=== PATIENT | female | born 2005 | race Hispanic/Latino ===

== ENCOUNTER 2025-08-15 18:14 | Emergency (ER) | payer SELFPAY ==
[2025-08-15 18:18] VITALS: BP 143/85
[2025-08-15 18:40] LABS: Hematocrit 39.2 % (37.0-47.0); Hemoglobin 13.2 g/dL (12.0-16.0); Mean Corp Hgb Conc. 33.7 g/dL (33.0-37.0); Mean Corpuscular Volume 80.0 fL (81.0-99.0); Nucleated Red Blood Cells % 0 %; Platelet Count 288 10^3/uL (130-400); Red Cell Dist. Width 15.1 % (11.5-14.5)
[2025-08-15 19:05] LABS: ALT (SGPT) 14 U/L (0-35); AST (SGOT) 24 U/L (14-36); Albumin 5.4 g/dl (3.5-5.0); Alkaline Phosphatase 66 U/L (38-126); Blood Urea Nitrogen 11 mg/dl (7-17); Calcium 9.8 mg/dl (8.4-10.2); Carbon Dioxide 24 mmol/L (22-30); Chloride 101 mmol/L (98-107); Glucose 98 mg/dl (70-99); Potassium 4.4 mmol/L (3.5-5.1); Sodium 137 mmol/L (135-145); Total Protein 8.4 g/dl (6.3-8.2); eGFR > 60.00
--- NOTE | 2025-08-15 20:06 | ED.GENMED ---
History of Present Illness
General
Chief Complaint: Headache
Source: patient, family (Father at bedside) and [employer]
Exam Limitations: none
Time Seen by Provider: 08/15/25 19:44
Nursing documentation reviewed up to this point in time: agreed with
History of Present Illness
History of Present Illness:
20-year-old female arriving from [place] 1 month ago, [id number], no past medical history presents for 'a little' blurry vision in her right eye and a headache right side of head she's had intermittently for past month, right neck and
shoulder pain for past week, worse with forward and backward neck flexion. She describes the vision as initially blurry but reports that it is not blurry at the time of the visit. The symptoms do not include any recent trauma or specific activity
that could have aggravated the condition.
Past History
Past History
ED Past Medical History: None
ED Past Surgical History: None
Social History
Tobacco: Non-smoker
Alcohol: None
Personal: Single
Living: with family (Moved here from [place] a month ago)
Employment: Not employed
Phy Exam
Physical Exam
Physical Exam:
GENERAL: No acute distress. A&Ox3.
CONSTITUTIONAL: Afebrile.
EYES: clear, conjunctivae normal, good reflex bilaterally. PERRL. Visual acuity noted. Pressure to palpation equal both eyes. No pain with eye movement. No redness.
ENMT: moist mucus membranes, Pharynx nl
RESPIRATORY: Regular respirations, nonlabored, lungs clear.
CARDIOVASCULAR: Regular rate and rhythm, no murmurs, no rubs.
GI: Soft, nontender, normal BS
MUSCULOSKELETAL: Moves with ease. Well perfused. Mild tenderness to palpation right paracervical muscles. Full ROM of neck with pain aggravated with flexion and extension of neck. Full ROM of RUE without pain. No pain about the shoulder with
palpation.
SKIN: Warm, dry, pink
PSYCH: Quiet mood and affect. Well kept, interactive and appropriate
NEUROLOGIC: Awake, alert and oriented. Cranial nerves II through XII intact. Grkmge-pr-[id number] intact. Ambulates well with steady gait. No focal neurological deficits
Course
Orders/Labs/Results
Orders:
Orders
08/15/25 18:30
CMP [Comprehensive Metabolic Panel] Urgent
Complete Blood Count/With Diff Urgent
08/15/25 22:39
Add On- LAB Urgent
Tests Added?: beta HCG qualitative
Abnormal Lab Results
08/15/25
18:30
MCV 80.0 L fL
(81.0-99.0)
MCH 26.9 L pg
(27.0-31.0)
RDW 15.1 H %
(11.5-14.5)
MPV 11.4 H fL
(7.4-10.4)
Total Protein 8.4 H g/dl
(6.3-8.2)
Albumin 5.4 H g/dl
(3.5-5.0)
08/15/25 18:30
08/15/25 18:30
Vital Signs
Initial and Last Documented VS:
Initial Vital Signs
Temp Pulse Resp BP Pulse Ox
98.1 F 120 18 143/85 100
08/15/25 18:18 08/15/25 18:18 08/15/25 18:18 08/15/25 18:18 08/15/25 18:18
Last Documented Vital Signs
Temp Pulse Resp BP Pulse Ox
98.1 F 99 18 129/77 99
08/15/25 18:18 08/15/25 20:32 08/15/25 20:32 08/15/25 20:32 08/15/25 20:32
MDM/Problems Addressed
Differential Diagnosis Includes:
situational depression
cervical strain
eye strain, dry eye, migraine
MDM/Problems Addressed:
20-year-old female arriving from [place] 1 month ago, [id number], no past medical history presents for 'a little' blurry vision in her right eye and a headache right side of head she's had intermittently for past month, right neck and
shoulder pain for past week, worse with forward and backward neck flexion. She describes the vision as initially blurry but reports that it is not blurry at the time of the visit. The symptoms do not include any recent trauma or specific activity
that could have aggravated the condition.
Patient initially told nurse that she was here for a headache on the right side of her head and pressure in the right eye with blurry vision in the right eye, then later stated she does not have a headache and she cannot remember the last time she
had a headache but she has pain in the right side of her neck and shoulder and mild blurry vision in the right eye.
Her father chimes in and said that she has been depressed since moving here from [place] a month ago and he is concerned because she is lays around all day and does not want to go out and do things. She admits that she is depressed but she denies
being suicidal or wanting to hurt herself or anyone else.
Her father is more concerned about her being withdrawn and not participation in family activities.
No neuro deficits
8:30 p.m.
Lengthy time spent with [employer] with father and patient.
Spoke with patient alone in room, she states she feels safe at home, has not been abused in any way, denies being sexually active.
Pt states she does NOT have headache and can't remember last time she had one. initially considered head CT but now not indicated.
Visual acuity noted. Eye exam is unremarkable. Recommend ophthalmology evaluation
Recommend evaluation for depression, most likely situational with recent move from [place], she denies feeling depressed prior to coming here.
Recommend Ibuprofen for right neck muscle strain
Referred to [facility] to call tomorrow for appointment.
*Pulse Oximetry
SaO2: 100
Oxygen Mode of Delivery: Room air
Patient hypoxic: not evaluated
*Critical Care Note
Total Time (30-74mins, 75-104mins- exclusive of procedures): Not Applicable
ED Attending Note
-
Portions of this chart may have been created with voice recognition software.� Occasional wrong word or��sound alike� substitutions may have occurred due to the inherent limitations of voice recognition software.
Discharge Plan
Departure
Patient Disposition: Home (Routine Discharge)
Date of Disposition: 08/15/25
Time of Disposition: 20:47
Patient with high blood pressure during this ER visit?: No
Condition: Good
Discharge Problem:
History of headache, Blurred vision, right eye
Instructions: Headache, Adult (DC)
Referrals:
[facility] [Other]
NONE,* [Family Provider, Internal Medicine]
Activity Restrictions/Additional Instructions:
As we discussed, nothing worrisome in your exam here today
You have right side neck muscle strain.
Take Ibuprofen 600 mg every 8 hours as needed for neck and shoulder pain or headache.
Your blood tests are normal
Call the [facility] clinic [phone] and make next available appointment
You should see someone about feeling depresses, you should also see an eye doctor.
Return here immediately for loss of vision, worsening headache or feeling sicker in any way
Interventions
Interventions:
*General Assessment Last Done: 08/15/25 18:18
*Neglect/Abuse Screening Last Done: 08/15/25 18:18
*ED COVID-19 Vaccine History Last Done: 08/15/25 19:49
*ED Influenza Vaccine History Last Done: 08/15/25 19:49
[facility] Risk Assessment Tool Last Done: 08/15/25 19:49
*Risk Screen - Suicide (C-SSRS) Last Done: 08/15/25 18:18
*Nursing Disposition Last Done: 08/15/25 20:55
ED- Neurological Assessment Last Done: 08/15/25 19:49
Discharge Date and Time
Discharge Date/Time: 08/15/25 20:56
Print Language: HAITIAN
[2025-08-15 20:32] VITALS: BP 129/77
== END 2025-08-15 20:56 | disposition home or self-care (01) ==
LOC: EMR 18:14
PROVIDERS: EMERGENCY PHYSICIAN Student in an Organized Health Care Education/Training Program
DX: H53.8 Other visual disturbances (principal); M54.2 Cervicalgia; M25.511 Pain in right shoulder
CPT/HCPCS: 99283; 80053; 85025